=== PATIENT | female | born 1965 | race Caucasian/White ===

== ENCOUNTER 2018-11-17 06:13 | Day surgery (SDC) | payer OTHER ==
[~2018-11-17] VITALS: Ht 154.9 cm; Wt 63.5 kg
[2018-11-17] MEDS ORDERED: fentaNYL 0.05 MG/ML VIAL ONE (07:45)
[2018-11-17] MEDS ORDERED: LIDOCAINE 2% 100 MG/5 ML UJET TP ONE (07:45)
[2018-11-17] MEDS ORDERED: MIDAZOLAM 2 MG/2 ML VIAL ONE ×2 (07:45)
== END 2018-11-17 08:54 | disposition home or self-care (01) ==
LOC: MMU 06:13 → MDS 06:13
PROVIDERS: ATTEND Internal Medicine Gastroenterology
DX: K64.8 Other hemorrhoids (principal); K31.9 Disease of stomach and duodenum, unspecified; M19.041 Primary osteoarthritis, right hand; E66.3 Overweight; Z68.26 Body mass index [BMI] 26.0-26.9, adult; Z79.899 Other long term (current) drug therapy; Z98.890 Other specified postprocedural states
CPT/HCPCS: 36415; 43239; 45378; 86677; J2250; J3010